=== PATIENT | male | born 1990 | race African-American/Black ===

== ENCOUNTER 2018-11-26 03:16 | Emergency (ER) | payer SELFPAY ==
[~2018-11-26] VITALS: Ht 188 cm; Wt 88.9 kg
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
[2018-11-26] MEDS ORDERED: TRAM50TA PO (04:47)
[2018-11-26] MEDS ORDERED: META-21 PO (04:47)
[2018-11-26 04:54] VITALS: BP 158/71
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
== END 2018-11-26 04:58 | disposition home or self-care (01) ==
LOC: ER 03:16
DX: S39.012A Strain of muscle, fascia and tendon of lower back, initial encounter (principal); V43.62XA Car passenger injured in collision with other type car in traffic accident, initial encounter; Y93.89 Activity, other specified; Y92.410 Unspecified street and highway as the place of occurrence of the external cause; Y99.8 Other external cause status
CPT/HCPCS: 72100; 99284